=== PATIENT | male | born 1935 | race Caucasian/White ===

== ENCOUNTER 2019-11-20 07:44 | Outpatient (RCR) | payer OTHER ==
[~2019-11-20] VITALS: Ht 172.7 cm; Wt 58.0 kg
[~2019-11-20 07:44] MED LIST changes: -CYANOCOBAL1000 MCG/M IM; -FLOMAX 0.40.4 MG/CAP PO; -IMODIUM 2MG CAPS2 MG PO
[2019-11-20 08:15] VITALS: BP 115/72; PULSE 82; TEMP 97.7
--- NOTE | 2019-11-20 09:45 | NUR ---
PICC HAS BEULAH WRAP ON IT ON RIGHT UPPER ARM, PT ASSISTED TO W/C, RIDE CALLED FROM [facility], PT DISCHARGED WITH [facility], PAPERS FORM PICC CARE SENT WITH PT FOLDER
[2019-11-20] MEDS ORDERED: FLOMAX 0.40.4 MG/CAP PO (10:17)
[2019-11-20] MEDS ORDERED: CYANOCOBAL1000 MCG/M IM (10:18)
[2019-11-20] MEDS ORDERED: IMODIUM 2MG CAPS2 MG PO (10:19)
== END 2019-11-24 15:28 ==
LOC: EUO 07:44
DX: N39.0 Urinary tract infection, site not specified (principal)
CPT/HCPCS: C1751

== ENCOUNTER → 2019-11-20 | Outpatient (CLI) | payer MEDICARE ==
[~2019-11-20] MED LIST: CYANOCOBAL1000 MCG/M IM; FLOMAX 0.40.4 MG/CAP PO; IMODIUM 2MG CAPS2 MG PO; INVANZ INJ1 G/VIAL IV; ZITHROMAX Z PA250 MG PO
[2019-11-20 17:50] LABS: BASO # 0.1 (0.0-0.2); BASO % 0.5 % (0.0-2.0); EOS # 0.4 (0.0-0.7); EOS % 3.6 % (0-4.0); GRAN # 6.9 (1.4-6.5); GRAN % 65.3 % (42.2-75.2); HEMATOCRIT 40.7 % (42.0-52.0); HEMOGLOBIN 12.6 g/dl (13.5-18.0); LYMPH # 2.3 (1.2-3.4); LYMPH % 21.7 % (20.0-51.0); MEAN CELL VOLUME 92 fl (80.0-100.0); MEAN CORPUSCULAR HEMOGLOBIN 29 pg (27.0-31.0); MEAN CORPUSCULAR HGB CONC 31 g/dl (33.0-37.0); MEAN PLATELET VOLUME 12.5 fl (7.4-10.4); MONO # 0.9 (0.1-0.6); MONO % 8.6 % (1.7-9.3); PLATELET COUNT 255 K/mm3 (130-400); RED BLOOD COUNT 4.42 M/mm3 (4.20-5.60); REDCELL DISTRIBUTION WIDTH-CV 14.5 % (11.5-14.5)
[2019-11-20 18:00] LABS: BILIRUBIN,TOTAL 0.7 mg/dL (0.0-1.0); CALCIUM 8.7 mg/dL (8.4-10.2); CREATININE, serum 0.73 (0.66-1.25); POTASSIUM 4.8 mmol/L (3.4-5.0)
[2019-11-20 18:27] LABS: ERYTHROCYTE SEDIMENTATION RATE 69 mm/hr (0-30)
== END ==
LOC: ZCOL.LAB 15:19
PROVIDERS: Internal Medicine
DX: B96.20 Unspecified Escherichia coli [E. coli] as the cause of diseases classified elsewhere (principal)

== ENCOUNTER → 2019-11-25 | Outpatient (CLI) | payer MEDICARE ==
[~2019-11-25] MED LIST changes: +CYANOCOBAL1000 MCG/M IM; +FLOMAX 0.40.4 MG/CAP PO; +IMODIUM 2MG CAPS2 MG PO
== END ==
LOC: ZCOL.LAB 15:14
DX: Z20.828 Contact with and (suspected) exposure to other viral communicable diseases (principal)

== ENCOUNTER 2019-11-28 12:54 | Day surgery (SDC) | payer MEDICARE, OTHER ==
[2019-11-28] VITALS (10 sets, daily range): BP systolic 100–115; BP diastolic 51–82; PULSE 78–94; TEMP 97.2–97.8
[~2019-11-28] VITALS: Ht 172.7 cm; Wt 57.5 kg
[2019-11-28] MEDS ORDERED: BOOST HIGH PRO240 ML PO (13:32)
[2019-11-28] MEDS ORDERED: VITAMIN B11000 MCG/M IM (13:34)
[2019-11-28] MEDS ORDERED: INVANZ INJ1 G/VIAL IV (13:36)
[2019-11-28] MEDS ORDERED: GOOD NEIGH1200 MG/15 PO (13:40)
[2019-11-28] MEDS ORDERED: ALMACONE 360 M360 ML PO (13:41)
[2019-11-28] MEDS ORDERED: ZINC OXIDE56.7 GM TP (13:44)
[2019-11-28] MEDS ORDERED: TYLENOL 325MG325 MG PO (13:45)
[2019-11-28] MEDS ORDERED: DULCOLAX S10 MG/SUPP RC (13:48)
[2019-11-28] MEDS ORDERED: HEPARIN LOCK FLU5 M1 (13:55)
--- NOTE | 2019-11-28 16:45 | NUR ---
PATIENT ADMITED INTO ROOM 326 POST OP TURP WITH LEFT STONE LASER WITH STENT. PATIENT IS VERY DROWSY POST OP. VSS. DEMPSEY TO DD WITH MOD AMOUNTS OF CLEAR YELLOW URINE NOTED. CBI INFUSING AT MOD RATE. IV FLUIDS INFUSING INTO RIGHT UPPER ARM PICC. HEAD TO TOE ASSESSMENT COMPLETE. PATIENT SLEEPING SOUNDLY.
--- NOTE | 2019-11-28 20:00 | NUR ---
PT IN BED. IS ALERT AND ORIENTED X4. HAS IVF INFUSING TO RIGHT UPPER ARM PICC WITHOUT PROBLEM. HAS DEMPSEY TO BSD WITH CBI INFUSING, URINE IS MORAES RED. ENJOYS ICE CREAM AND COOKIE.
[2019-11-29] VITALS: BP 101/60; PULSE 84; TEMP 97.5
--- NOTE | 2019-11-29 02:15 | NUR ---
PT COMPLAINS OF INCREASED PAIN IN BLADDER, HAS TRELL RAG ON WITH RED DRAINAGE. HAND IRRIGATED CATHETER WITH RETURN OF SEVERAL STRINGY CLOTS. URINE STARTED FLOWING AFTER THIS. PT REPORTS NO FURTHER DISCOMFORT.
[2019-11-29 04:00] VITALS: BP 107/55; PULSE 80; TEMP 97.5
[2019-11-29 08:10] VITALS: BP 102/52; PULSE 92; TEMP 97.6
--- NOTE | 2019-11-29 09:00 | NUR ---
Patient resting in bed, easily awakened with verbal command. A&Ox3. Denies pain and discomfort. VSS. IV CDI, fluids infusing. Monterroso with CBI, dark red. Infusion increased, will continue to monitor. No further needs expressed from the patient. Call light within reach. Bed alarm on
[2019-11-29 11:35] VITALS: BP 97/52; PULSE 83; TEMP 97.6
--- NOTE | 2019-11-29 13:37 | NUR ---
Nurses Educator visited with patient but nothing else needed at this time.
--- NOTE | 2019-11-29 15:49 | NUR ---
Plan is to return home with Di Giraldo . Patient reports that Di is his DPOA. Patient reports that he resides with her but they are trying to get hime into [facility] due to ID benifits or [facility] assisted living. Patient report he prefers [facility]. Patient reports that his PCP is Dr. Paula at the [facility] and he obtains [facility]. Patient reports that he uses a cane for mobility prn and denies having any other DME use. Patient reports that Di will provide transportation. Additional care support is Ahmet Giraldo. Patient reports that during his last stay he went to [facility] and is not opposed to another rehab stay if he needs it. ROMEO education patient on services. ROMEO attempted calling DPOA and call went to . Will continue to follow for care support.
[2019-11-29 16:26] VITALS: BP 100/54; PULSE 72; TEMP 97.2
--- NOTE | 2019-11-29 17:34 | NUR ---
Patient had an uneventful day. Continued CBI and patient tolerating well. Dependent drainage peach color with small clots. PICC ELISA CDI. Denies pain and discomfort. Nursing staff encouraging patient to increase PO intake. Patient verbalized an understanding. No further needs expressed from the patient. Call light within reach
[2019-11-29 19:44] VITALS: BP 93/52; PULSE 89; TEMP 97.9
--- NOTE | 2019-11-29 21:30 | NUR ---
PT IN BED. IS ALERT AND ORIENTED X4. HAS DEMPSEY WITH CBI AT SLOW RATE, URINE IS PINK WITH OCCASIONAL REDNESS THAT RESOLVES WITHOUT HAND IRRIGATION. DEMPSEY CARES GIVEN. TAKES ICE CREAM AND COOKIE. PICC TO RIGHT UPPER ARM FLUSHES WELL.
[2019-11-30 00:29] VITALS: BP 116/56; PULSE 83; TEMP 98.5
[2019-11-30 04:00] VITALS: BP 102/43; PULSE 77; TEMP 99.3
--- NOTE | 2019-11-30 05:00 | NUR ---
NO NEED FOR HAND IRRIGATION THIS SHIFT. URINE PINK/YELLOW WITH CBI AT SLOW RATE.
[2019-11-30 07:43] VITALS: BP 130/65; PULSE 81; TEMP 97.4
--- NOTE | 2019-11-30 08:14 | NUR ---
Patient laying in bed, easily awakened with verbal command, plesant. A&Ox3. VSS Denies pain and discomfort. PICC ELISA CDI. Monterroso pink, clear, CBI dependent drainage. No further needs expressed from the patient. Call light within reach
[2019-11-30 11:08] VITALS: BP 99/44; PULSE 93; TEMP 97.9
[2019-11-30 12:49] VITALS: BP 99/44; PULSE 93; TEMP 97.9
--- NOTE | 2019-11-30 14:47 | NUR ---
SW informed that patient would be transfering back to [facility]. DC orders faxed to agency, [facility] staff member contacted and provided patient would be able to be picked up at 2:30pm 11/30/2019. Nurse of patient informed. Nothing further.
--- NOTE | 2019-11-30 15:00 | NUR ---
Patient assisted with getting dressed by nurse. Discharge packet with patient and personal belongings with patient. PICC ELISA left in place to continue treatment at [facility]. CDI. No further needs expressed from the patient. Patient transferred by wheelchair to ED entrance by the nurse to the [facility] transporter.
== END 2019-11-30 15:00 ==
LOC: SDCO 12:54 → SURG 16:45 → SDCO 11-30 15:00
DX: N40.1 Benign prostatic hyperplasia with lower urinary tract symptoms (principal); N13.8 Other obstructive and reflux uropathy; R33.8 Other retention of urine; N20.1 Calculus of ureter; E87.6 Hypokalemia; D64.9 Anemia, unspecified; K25.9 Gastric ulcer, unspecified as acute or chronic, without hemorrhage or perforation; R53.81 Other malaise; Z79.899 Other long term (current) drug therapy; Z87.891 Personal history of nicotine dependence; Z20.828 Contact with and (suspected) exposure to other viral communicable diseases; Z86.19 Personal history of other infectious and parasitic diseases; J44.9 Chronic obstructive pulmonary disease, unspecified; Z87.440 Personal history of urinary (tract) infections
CPT/HCPCS: OP; C1769; J0690; J1100; J2405; J2704; J3010; J3480; J7120

== ENCOUNTER 2021-03-16 13:50 | Emergency (ER) | payer MEDICARE, OTHER ==
[~2021-03-16] VITALS: Ht 172.7 cm; Wt 63.6 kg
[~2021-03-16 13:50] MED LIST changes: +ALMACONE 360 M360 ML PO; +BOOST HIGH PRO240 ML PO; +DULCOLAX S10 MG/SUPP RC; +GOOD NEIGH1200 MG/15 PO; +HEPARIN LOCK FLU5 M1; +TYLENOL 325MG325 MG PO; +VITAMIN B11000 MCG/M IM; +ZINC OXIDE56.7 GM TP
[2021-03-16 14:36] LABS: BASO # 0.1 K/mm3 (0.0-0.2); BASO % 0.5 % (0.0-2.0); EOS # 0.2 K/mm3 (0.0-0.7); EOS % 1.6 % (0.0-4.0); GRAN # 9.3 K/mm3 (1.4-6.5); GRAN % 75.4 % (42.2-75.2); HEMOGLOBIN 11.2 g/dl (13.5-18.0); LYMPH # 1.9 K/mm3 (1.2-3.4); LYMPH % 15.1 % (20.0-51.0); MEAN CELL VOLUME 77 fl (80.0-100.0); MEAN CORPUSCULAR HEMOGLOBIN 23 pg (27-31); MEAN CORPUSCULAR HGB CONC 30 g/dl (33.0-37.0); MEAN PLATELET VOLUME 11.2 fl (7.4-10.4); MONO # 0.8 K/mm3 (0.1-0.6); MONO % 6.5 % (1.7-9.3); PLATELET COUNT 337 K/mm3 (130-400); RED BLOOD COUNT 4.79 M/mm3 (4.20-5.60); REDCELL DISTRIBUTION WIDTH-CV 17.2 % (11.5-14.5)
[2021-03-16 15:10] LABS: ALANINE AMINOTRANSFERASE 13 U/L (0-55); ALBUMIN 2.4 gm/dL (3.4-4.8); ALKALINE PHOSPHATASE 93 U/L (40-150); ANION GAP 13 mmol/L (7-16); AST,SGOT 17 U/L (5-34); BILIRUBIN,TOTAL 0.5 mg/dL (0.2-1.2); BLOOD UREA NITROGEN 14 mg/dL (8-26); C-REACTIVE PROTEIN 20.43 mg/dL (0.00-0.50); CALCIUM 9.2 mg/dL (8.4-10.2); CARBON DIOXIDE 25 mmol/L (23-31); CHLORIDE 104 mmol/L (98-107); CREATININE, serum 0.82 mg/dL (0.72-1.25); GLUCOSE 107 mg/dL (70-99); SODIUM 142 mmol/L (136-145); TOTAL PROTEIN 7.1 gm/dL (6.2-8.1)
[2021-03-16 15:18] LABS: TROPONIN-I < 0.010 ng/mL (0.00-0.033)
[2021-03-16 16:30] LABS: COLLECTION METHOD CLEAN CATCH
[2021-03-16 16:35] LABS: MUCOUS Present (NOT PRESENT); PH 6 (5-8); SQUAMOUS EPITHELIAL None Seen /hpf (0-10); URINE APPEARANCE Hazy (CLEAR/HAZY); URINE BACTERIA Rare /hpf (NONE SEEN); URINE BILIRUBIN Negative (NEGATIVE); URINE BLOOD 2+ (NEGATIVE); URINE COLOR Yellow (YELLOW); URINE GLUCOSE Negative (NEGATIVE); URINE KETONE 1+ (NEGATIVE); URINE LEUKOCYTE ESTERASE 1+ (NEGATIVE); URINE NITRATE Negative (NEGATIVE); URINE PROTEIN(semi-quant) 1+ (NEGATIVE); URINE RBC >50 /hpf (0-2); URINE UROBILINOGEN >=4.0 (NEGATIVE)
[2021-03-16] MEDS ORDERED: OMNICEF 300MG300 MG PO (17:38)
[2021-03-16 18:00] VITALS: BP 151/77; PULSE 89; TEMP 98.1
== END 2021-03-16 18:10 | disposition home or self-care (01) ==
LOC: COL.ER 13:50
PROVIDERS: Nurse Practitioner Primary Care
DX: N39.0 Urinary tract infection, site not specified (principal); Z87.442 Personal history of urinary calculi; Z98.890 Other specified postprocedural states; Z72.0 Tobacco use; Z20.822 Contact with and (suspected) exposure to COVID-19
CPT/HCPCS: J0696; J7030

== ENCOUNTER 2022-12-13 10:00 | Emergency (ER) | payer OTHER ==
[~2022-12-13] VITALS: Ht 172.7 cm; Wt 61.4 kg
[~2022-12-13 10:00] MED LIST changes: +ANTIVERT 12.512.5 MG PO; +ASPIRIN 81M81 MG/TA2 PO; +CEPHALEXIN500 M1 PO; +CEROVITE SENIOR1 TA1 PO; +DIFLUCAN 100MG100 MG PO; +DULERA1 AR1 IH; +EPA FISH OIL1000 MG PO; +FERROUS SU325 MG/TAB PO; +FLONASEALLERGY NS; +ICAPS AREDS2 S1 EACH PO; +LIPITOR 80MG80 MG PO; +NATURAL IRON65 MG PO; +OMNICEF 300MG300 MG PO; +PREDNISONE20 MG PO; +PROTONIX20 MG PO; +SPIRIVA RE2.5 MCG/Ac IH; +STOOL SOFTENER100 M2 PO; +THERA-D 20002000 IU PO; +TYLENOL 500MG500 MG PO; +VTAMINC250TA PO; +ZOFRAN ODT4 MG PO
[2022-12-13 10:10] VITALS: TEMP 97.6
[2022-12-13 10:56] LABS: BASO % 0.5 % (0.0-2.0); EOS # 0.3 K/mm3 (0.0-0.7); GRAN # 5.8 K/mm3 (1.4-6.5); GRAN % 66.6 % (42.2-75.2); LYMPH # 1.9 K/mm3 (1.2-3.4); LYMPH % 22.5 % (20.0-51.0); MEAN CELL VOLUME 89 fl (80.0-100.0); MEAN CORPUSCULAR HGB CONC 29 g/dl (33.0-37.0); MEAN PLATELET VOLUME 10.7 fl (7.4-10.4); MONO # 0.6 K/mm3 (0.1-0.6); MONO % 7.1 % (1.7-9.3); PLATELET COUNT 361 K/mm3 (130-400); RED BLOOD COUNT 3.68 M/mm3 (4.20-5.60); REDCELL DISTRIBUTION WIDTH-CV 18.2 % (11.5-14.5)
[2022-12-13 10:57] LABS: INR 1.1 (0.8-3.0); PROTHROMBIN TIME 11.9 SECONDS (9.7-12.8)
[2022-12-13 10:58] LABS: HEMATOCRIT 32.6 % (42.0-52.0); HEMOGLOBIN 9.6 g/dl (13.5-18.0); MEAN CORPUSCULAR HEMOGLOBIN 26 pg (27-31)
[2022-12-13 11:09] LABS: ALBUMIN 2.4 gm/dL (3.4-4.8); BILIRUBIN,TOTAL 0.3 mg/dL (0.2-1.2); CALCIUM 8.3 mg/dL (8.4-10.2); CREATININE, serum 0.98 mg/dL (0.72-1.25); POTASSIUM 4.1 mmol/L (3.5-4.5); TOTAL PROTEIN 6.2 gm/dL (6.2-8.1)
[2022-12-13 12:36] VITALS: BP 105/60; PULSE 66
== END 2022-12-13 12:36 | disposition home or self-care (01) ==
LOC: COL.ER 10:00
PROVIDERS: Emergency Medicine
DX: S50.11XA Contusion of right forearm, initial encounter (principal); N20.1 Calculus of ureter; Z96.0 Presence of urogenital implants; Z87.891 Personal history of nicotine dependence; Z79.2 Long term (current) use of antibiotics; X58.XXXA Exposure to other specified factors, initial encounter

== ENCOUNTER 2023-02-22 13:29 | Inpatient (IN) | payer OTHER ==
[~2023-02-22] VITALS: Ht 172.7 cm; Wt 61.2 kg
[2023-02-22] VITALS (342 sets, daily range): BP systolic 53–145; BP diastolic 38–76; PULSE 88–137; TEMP 97.4–98.3; O2SAT 72–100
[2023-02-22 13:59] LABS: BASO # 0.1 K/mm3 (0.0-0.2); BASO % 0.4 % (0.0-2.0); EOS # 0.1 K/mm3 (0.0-0.7); EOS % 1.2 % (0.0-4.0); GRAN # 7.7 K/mm3 (1.4-6.5); GRAN % 66.8 % (42.2-75.2); LYMPH # 2.9 K/mm3 (1.2-3.4); LYMPH % 24.7 % (20.0-51.0); MEAN CELL VOLUME 88 fl (80.0-100.0); MEAN CORPUSCULAR HEMOGLOBIN 27 pg (27-31); MEAN CORPUSCULAR HGB CONC 30 g/dl (33.0-37.0); MEAN PLATELET VOLUME 11.2 fl (7.4-10.4); MONO # 0.8 K/mm3 (0.1-0.6); MONO % 6.6 % (1.7-9.3); PLATELET COUNT 231 K/mm3 (130-400); RED BLOOD COUNT 3.75 M/mm3 (4.20-5.60); REDCELL DISTRIBUTION WIDTH-CV 17.7 % (11.5-14.5)
[2023-02-22 14:00] LABS: HEMATOCRIT 33.1 % (42.0-52.0)
[2023-02-22] MEDS ORDERED: NS 1,000 ML IV ONE ×3 (14:00→16:45)
[2023-02-22 14:11] LABS: ALBUMIN 3.1 gm/dL (3.4-4.8); BILIRUBIN,TOTAL 0.4 mg/dL (0.2-1.2); CALCIUM 8.9 mg/dL (8.4-10.2); CREATININE, serum 0.97 mg/dL (0.72-1.25); POTASSIUM 3.6 mmol/L (3.5-4.5); TOTAL PROTEIN 6.2 gm/dL (6.2-8.1)
[2023-02-22] MEDS ORDERED: NS 100 ML IV SCH (14:49)
[2023-02-22] MEDS ORDERED: Iohexol 300 - 100 ML VIAL IV ONE (14:49)
[2023-02-22] MEDS ORDERED: Meropenem 1 G in Water For Injection,Sterile 20 ML IV ONE (15:45)
[2023-02-22 16:10] LABS: COLLECTION METHOD CLEAN CATCH
[2023-02-22] MEDS ORDERED: Pantoprazole 40 MG in NS 10 ML IV SCH (16:30)
[2023-02-22 16:50] LABS: URINE APPEARANCE Hazy (CLEAR/HAZY); URINE COLOR Yellow (YELLOW)
[2023-02-22 16:51] LABS: PH 5.5 (5.0-8.5); URINE BLOOD Negative (NEGATIVE); URINE GLUCOSE Negative (NEGATIVE); URINE KETONE Negative (NEGATIVE); URINE NITRATE Negative (NEGATIVE); URINE PROTEIN(semi-quant) Negative (NEGATIVE); URINE UROBILINOGEN 0.2 E.U/dL (0.2-1.0)
[2023-02-22 16:54] LABS: BUDDING YEAST Present (NOT PRESENT); SQUAMOUS EPITHELIAL 0-2 /hpf (0-10); URINE BACTERIA None Seen /hpf (NONE SEEN); URINE RBC 0-2 /hpf (0-2)
[2023-02-22] MEDS ORDERED: Fluconazole 100 MG TAB PO SCH (17:09)
[2023-02-22] MEDS ORDERED: Tiotropium 2.5 MCG Respimat MDI IH SCH (17:11)
[2023-02-22] MEDS ORDERED: Mometasone/Formoterol 200/5 MCG MDI IH SCH (17:13)
[2023-02-22] MEDS ORDERED: Ondansetron 4 MG/2 ML VIAL IV PRN ×2 (17:15→19:00)
[2023-02-22] MEDS ORDERED: Potassium Bicarbonate/Citrate 20 MEQ Effervescent TAB PO ONE (17:15)
[2023-02-22] MEDS ORDERED: Fluticasone Nasal 50 MCG/Spray 16 GM BOTTLE NS PRN (17:15)
[2023-02-22] MEDS ORDERED: Acetaminophen 500 MG TAB PO PRN (17:15)
--- NOTE | 2023-02-22 17:15 | NUR ---
Report received from ORALIA Carrera; patient came over from ED at approx 1710 on ED stretcher. Patient was alert and oriented and moved over to the ICU bed unassisted. Patient has hearing aids that are not here and is very hard of hearing; patient also has dentures in place and glasses here in his belongings. Patient is tachycardic and blood pressures are soft but above the parameters of needing to start levophed. Patient is in stable condition. Patient had right upper arm PICC placed over in ED; will give NS bolus per eMAR.
[2023-02-22] MEDS ORDERED: NS 1,000 ML IV SCH (17:45)
[2023-02-22] MEDS ORDERED: Albuterol/Ipratropium 3 MG-0.5 MG/3 ML Neb Soln IH PRN (17:45)
[2023-02-22] MEDS ORDERED: Albuterol/Ipratropium 3 MG-0.5 MG/3 ML Neb Soln IH SCH (19:00)
[2023-02-22] MEDS ORDERED: Formoterol 20 MCG,Budesonide 0.5 MG IH SCH (19:00)
[2023-02-22] MEDS ORDERED: Meropenem 500 MG in Water For Injection,Sterile 10 ML IV SCH (20:00)
--- NOTE | 2023-02-22 20:01 | NUR ---
PT RESTING IN BED AT THIS TIME AND REQUESTED BED CARVALHO. PT ABLE TO LIFT BOTTOM AND ASSIST OF 1 STAFF FOR BED CARVALHO USE. HE IS A&O X4 AT THIS TIME. HE REPORTS A RECENT FALL, DENIES PAIN, AND ALL ASSESSMENTS WERE COMPLETED AT THIS TIME. VS NOTED WITH ELEVATED HR AND LEVO INFUSING PER ORDERS. BED IN LOW POSITION, CALL LIGHT WITHIN REACH AND ALL QUESTIONS ANSWERED. PT AWARE OF SURGERY TONIGHT AND PO MEDS HELD AT THIS TIME.
--- NOTE | 2023-02-22 20:45 | NUR ---
DR AYALA AND ANESTHESIA AT BEDSIDE. PROCEDURE REVIEWED OF LEFT URETAL STENT AND CONSENT SIGNED. PT LEFT THE UNIT IN BED.
[2023-02-22] MEDS ORDERED: Eye Formula MVI w/Minerals TABLET PO SCH (21:00)
[2023-02-22] MEDS ORDERED: Lidocaine 2% (20 MG/ML) 20 ML UROJET MM ONE (21:05)
--- NOTE | 2023-02-22 21:31 | NUR ---
PT RETURNED FROM SURGERY AT 2116. ASSESSMENTS COMPLETED. LOW BP WITH ADJUSTMENT OF LEVOPHED PER APR. BED IS LOW POSITION, PT ORIENTED TO SELF AND DENIES PAIN AT THIS TIME. HE IS ON 2L O2 VIA MASK AND REQUESTS A WARM BLANKET. CALL LIGHT WITHIN REACH AND BED IN LOW POSITION. NO ADDITIONAL NEEDS VOICED OR ANTICIPATED AT THIS TIME.
--- NOTE | 2023-02-22 22:48 | NUR ---
PT DIET IS TOLERATED TO GENERAL. NO COUGHING OR TROUBLE SWALLOWING NOTED AT THIS TIME. PUDDING BROUGHT TO ROOM. PT ON RA WITH NO SOA AND MAINTAINING O2 SATS WNL. BP FLUCTUATION NOTED AND LEVOPHED TITRATED PER ORDERS. BED IN LOW POSITION AND CALL LIGHT WITHIN REACH.
[2023-02-23] VITALS (799 sets, daily range): BP systolic 97–129; BP diastolic 51–101; PULSE 78–97; TEMP 97.1–99.1; O2SAT 84–100
[2023-02-23 01:20] LABS: HEMATOCRIT 23.9 % (42.0-52.0); HEMOGLOBIN 7.3 g/dl (13.5-18.0)
[2023-02-23 05:46] LABS: BASO % 0.2 % (0.0-2.0); EOS # 0.1 K/mm3 (0.0-0.7); EOS % 1.7 % (0.0-4.0); GRAN # 5.6 K/mm3 (1.4-6.5); GRAN % 67.5 % (42.2-75.2); LYMPH # 1.9 K/mm3 (1.2-3.4); LYMPH % 22.1 % (20.0-51.0); MEAN CELL VOLUME 87 fl (80.0-100.0); MEAN CORPUSCULAR HGB CONC 31 g/dl (33.0-37.0); MEAN PLATELET VOLUME 11.1 fl (7.4-10.4); MONO # 0.7 K/mm3 (0.1-0.6); MONO % 8.1 % (1.7-9.3); PLATELET COUNT 191 K/mm3 (130-400); RED BLOOD COUNT 2.83 M/mm3 (4.20-5.60); REDCELL DISTRIBUTION WIDTH-CV 17.9 % (11.5-14.5)
[2023-02-23 05:57] LABS: HEMATOCRIT 24.6 % (42.0-52.0); HEMOGLOBIN 7.6 g/dl (13.5-18.0); MEAN CORPUSCULAR HEMOGLOBIN 27 pg (27-31)
[2023-02-23 06:09] LABS: CALCIUM 7.7 mg/dL (8.4-10.2); CREATININE, serum 0.75 mg/dL (0.72-1.25); MAGNESIUM 1.7 mg/dL (1.6-2.6); POTASSIUM 3.9 mmol/L (3.5-4.5)
--- NOTE | 2023-02-23 07:31 | NUR ---
Report received from ORALIA Keith; patient currently resting in bed with NS running through his right upper arm PICC. Patient has a Monterroso catheter in place; no other lines or tubes are in place at this time. Patient is on room air and vital signs are within normal limits this morning. Levophed was stopped at approx midnight last night and pressures have maintained. Patient scheduled for EGD this morning and remains NPO.
[2023-02-23] MEDS ORDERED: NS 1,000 ML IV SCH ×2 (09:15→17:15)
[2023-02-23] MEDS ORDERED: Lidocaine PF 2% (20 MG/ML) 5 ML VIAL ONE (12:39)
--- NOTE | 2023-02-23 13:33 | NUR ---
Patient went for EGD at approx 1220 and returned at approx 1310. Patient tolerated procedure well and was stable upon return from PACU. Patient's vital signs remain within normal limits.
--- NOTE | 2023-02-23 15:03 | NUR ---
Oil Dispenser met with patient to discuss discharge planning. Patient lives alone in [place], [place] and [facility] Patient advised he used to be on the Red Team in [place], however had his care transferred to the [facility]. Patient advised his medications are mailed to him. Patient has both a cane and walker available at home. SW asked patient if he still drives and patient stated "when I can". Patient did report some difficulty recently with ADLS and that he hadn't bathed in about 4 days and needed to shave. SW inquired about HH services and patient stated he had them but not sure what agency they are with. Patient has DPOA-HC on file listing his friend, Amie (ph#[phone]). Patient stated he would like to return home at discharge if possible. SW explained that she is here to assist with any service or resource recommendations. SW contacted ROMEO Vargas at the [facility] who advised patient has home based primary care and that his provider is Yumi Rosales NP. Patient's assigned SW is Deja Jones. SW contacted Deja and left a message. SW contacted [facility] as in a previous SW note, it was written that a referral was sent there for patient. Preethi at [facility] advised they did not admit patient as he was getting his antibiotics through express and was "difficult to redirect". Preethi did indicate they did not have coverage in that area at this time so if he needed HH services, he would have to use a different agency. SW contacted Amie to touch base and explain role. Amie verbalized understanding and aware of any recent difficulties with ADLS. PT/OT ordered for patient. Discharge Plan: TBD
--- NOTE | 2023-02-23 17:55 | NUR ---
Reported off to Maxine Lawrence RN; patient taken upstairs in wheelchair by this nurse. Patient went to medical floor, room 309; patient was in stable condition and went up with IV fluids running through his right upper arm PICC and his Monterroso catheter in place. Patient remained on room air and vital signs were within normal limits. All patient's belongings were sent up with patient.
--- NOTE | 2023-02-23 19:08 | NUR ---
Patient transferred from ICU to unit around 1830. Patient alert and oriented x4, denies pain or discomfort. Vital signs around baseline, SBP noted to be low 100s. PICC line patent with NS running at 75ml/hr. Tolerating fluids well, states he ate a little more than half of his dinner in ICU. Patient in bed with call light in reach and SCDs on, all needs met at this time.
--- NOTE | 2023-02-23 20:00 | NUR ---
PT IN BED, IS ALERT AND ORIENTED X4. TAKES HS MED WITHOUT PROBLEM. HAS IVF TO RT UPPER ARM PICC, SITE WITHOUT REDNESS OR SWELLING. HAS DEMPSEY TO BSD WITH YELLOW URINE. DENIES PAIN AT THIS TIME.
[2023-02-24] VITALS (18 sets, daily range): BP systolic 93–121; BP diastolic 47–70; PULSE 56–104; TEMP 97.4–98.5
--- NOTE | 2023-02-24 04:07 | NUR ---
PT HAS SLEPT MINIMAL THIS SHIFT. DENIES PAIN, IVF CONTINUE TO RT PICC.
[2023-02-24] MEDS ORDERED: Ondansetron 4 MG/2 ML VIAL IV PRN (08:00)
[2023-02-24 08:30] LABS: BASO % 0.6 % (0.0-2.0); EOS # 0.3 K/mm3 (0.0-0.7); EOS % 4.7 % (0.0-4.0); GRAN # 3.6 K/mm3 (1.4-6.5); GRAN % 56.4 % (42.2-75.2); LYMPH # 1.7 K/mm3 (1.2-3.4); LYMPH % 26.8 % (20.0-51.0); MEAN CELL VOLUME 90 fl (80.0-100.0); MEAN CORPUSCULAR HGB CONC 30 g/dl (33.0-37.0); MEAN PLATELET VOLUME 12.1 fl (7.4-10.4); MONO # 0.7 K/mm3 (0.1-0.6); MONO % 11.3 % (1.7-9.3); PLATELET COUNT 163 K/mm3 (130-400); RED BLOOD COUNT 2.45 M/mm3 (4.20-5.60); REDCELL DISTRIBUTION WIDTH-CV 18.1 % (11.5-14.5)
[2023-02-24 08:42] LABS: HEMOGLOBIN 6.6 g/dl (13.5-18.0); MEAN CORPUSCULAR HEMOGLOBIN 27 pg (27-31)
[2023-02-24 08:55] LABS: CALCIUM 7.7 mg/dL (8.4-10.2); CREATININE, serum 0.78 mg/dL (0.72-1.25); MAGNESIUM 1.8 mg/dL (1.6-2.6); POTASSIUM 3.4 mmol/L (3.5-4.5)
--- NOTE | 2023-02-24 10:44 | NUR ---
Patient alert and oriented x4, denies pain at this time. Only concern patient voices was dizziness upon standing or sitting up. Hemoglobin noted to decrease from 7.6 to 6.6 today, Dr. Jenkins notified at 0730 and orders obtained to give 1 unit of blood today. Patient continues to have bloody stools, both dark/tarry as well as bright red. Education provided on upcoming colonoscopy procedure as well as blood transfusion. Patient verbalized understanding. Shift assessment complete, fine crackles noted to upper bases bilaterally. Patient noted to be wheezing with inhalation. Monterroso intact and draining yellow/clear urine. Patient in bed with call light in reach, all needs met at this time.
--- NOTE | 2023-02-24 13:32 | NUR ---
Blood transfusion started around 1305. Blood verified with ORALIA Stahl. Transfusion initiated at 60ml/hr. Vital signs prior to transfusion 107/65, HR 56, O2 97% room air, RR 16, T 98.1. Patient tolerating transfusion well at this time, no significant reaction during first 15 minutes. Patient states he just feels "exhausted." Transfusion rate increased to 100ml/hr after first 15 minutes. VS within baseline following 15 minuetes. Patient alert and oriented x4, resting in bed with call light in reach.
--- NOTE | 2023-02-24 14:14 | NUR ---
Patient continues to be alert and oriented, denies any new symptoms during blood transfusion. Dynamap reading 100s for heart rate, but after obtaining radial pulse HR noted to be 68. Patient resting in bed with SCDs on and call light within reach.
--- NOTE | 2023-02-24 15:42 | NUR ---
Blood transfusion complete, patient tolerated well. States he still feels tired and cold, but no new symptoms. SBP in low 100s, HR in 90s, temp afebrile, O2 >90% on room air, RR 20. Denies pain or discomfort. Telemetry order obtained from Dr. Jenkins. Patient in bed with call light in reach. All needs met at this time.
[2023-02-24 17:05] LABS: HEMATOCRIT 23.2 % (42.0-52.0); HEMOGLOBIN 7.4 g/dl (13.5-18.0)
--- NOTE | 2023-02-24 17:17 | NUR ---
Patient had another dark/loose stool tinged with bright red blood. Hemoglobin and hematocrit checked following blood transfusion and Dr. Jenkins updated on recent levels. Dr. Jenkins states levels are fine at this time and patient can be re-checked in the morning. Patient in bed with call light in reach and SCDs on, all needs met at this time.
--- NOTE | 2023-02-24 20:00 | NUR ---
Assessment complete. A&Ox4. Denies pain/nausea/shortness of breath. VS stable. TELE reporting irregular HR SD. Currently on RA. NS@75ml/hr to right upper arm PICC infusing without difficulty. Patient states he does feel less dizzy and all around better since he received a unit of blood earlier today. Monterroso cath with clear yellow urine. States has had one bloody stool this shift so far. Plan of care discussed for this shift to include meds/pain control/clear liquid diet with bowel prep tomorrow/calling for questions/concerns. Verbalizes understanding. Call light in reach. Will monitor.
[2023-02-25] VITALS (12 sets, daily range): BP systolic 105–132; BP diastolic 57–82; PULSE 85–97; TEMP 97.5–97.9
--- NOTE | 2023-02-25 04:30 | NUR ---
Patient had an uneventful night. DId have one loose stool this shift with blood/clots. VS remained stable. NS@75mls/hr to Right upper arm PICC. AM labs drawn from PICC without difficulty. Monterroso cath with clear yellow urine. Currently on RA. Denies current questions/concerns. Call light in reach. Will monitor.
[2023-02-25] MEDS ORDERED: NS 1,000 ML IV SCH (05:50)
[2023-02-25 07:21] LABS: BASO % 0.4 % (0.0-2.0); EOS # 0.5 K/mm3 (0.0-0.7); GRAN # 4.1 K/mm3 (1.4-6.5); GRAN % 56.1 % (42.2-75.2); LYMPH # 1.8 K/mm3 (1.2-3.4); LYMPH % 24.1 % (20.0-51.0); MEAN CELL VOLUME 89 fl (80.0-100.0); MEAN CORPUSCULAR HGB CONC 31 g/dl (33.0-37.0); MEAN PLATELET VOLUME 12.3 fl (7.4-10.4); MONO # 0.9 K/mm3 (0.1-0.6); MONO % 12.1 % (1.7-9.3); PLATELET COUNT 174 K/mm3 (130-400); REDCELL DISTRIBUTION WIDTH-CV 17.5 % (11.5-14.5)
[2023-02-25 07:31] LABS: HEMATOCRIT 26.6 % (42.0-52.0); HEMOGLOBIN 8.1 g/dl (13.5-18.0); MEAN CORPUSCULAR HEMOGLOBIN 27 pg (27-31)
[2023-02-25 07:43] LABS: CALCIUM 7.6 mg/dL (8.4-10.2); CREATININE, serum 0.82 mg/dL (0.72-1.25); POTASSIUM 3.4 mmol/L (3.5-4.5)
--- NOTE | 2023-02-25 10:00 | NUR ---
Assessment complete. Pt sat up in chair for breakfast for approximately 2 hours. Assisted back to bed with assistance from therapy. A/O x4 but very TANGIRNAQ. Denies pain or needs at this time.
[2023-02-25] MEDS ORDERED: Bisacodyl 5 MG TAB PO SCH (16:00)
[2023-02-25] MEDS ORDERED: Polyethylene Glycol 3350 119 GM BOTTLE PO SCH (18:00)
--- NOTE | 2023-02-25 18:07 | NUR ---
Pt's appetite poor today. Bowel prep started and patient voiced his concern on being able to drink the entire bowel prep regimen. Reassurance provided and encouraged patient to do the best he could. Pt had one dark medium stool earlier this morning that had clots- per PCT. Pt had another medium loose stool this afternoon that was not dark in color or have clots in it. Plan is for colonosocpy tomorrow afternoon.
--- NOTE | 2023-02-25 20:02 | NUR ---
Assessment complete. A&Ox4. Denies pain/nausea/shortness of breath. VS remain stable. Patient states he is feeling a little better this shift. Currently doing bowel prep. States he hasnt had a bowel movement since this AM. Monterroso cath with clear yellow urine. TELE reporting irregular SD. Right upper arm PICC flushes well with good blood return. Noted to have some edema to the right upper extremity from wrist to elbow. Manny bandage has been removed to rest area. PLan of care discussed for this shift to include meds-bowel prep/NPO/calling for questions/concerns. Verbalizes understanding. Call light in reach. Will monitor.
--- NOTE | 2023-02-25 20:55 | NUR ---
Received call from [employer] that patient had a 6 second run of SVT into the 170s-unsustained. VS checked at this time BP-106/57, P 97, R 18, SpO2-95% on RA. Currently patient is not symptomatic. States he did get a little light headed/dizzy a few seconds ago but it did pass. States I had a "swimmy feeling" but feel fine now. Patient is currently doing a bowel prep for a colonoscopy in AM. Will speak with JUAN C Kessler.
--- NOTE | 2023-02-25 21:18 | NUR ---
Patient up to commode at this time.
[2023-02-25 21:41] LABS: HEMATOCRIT 28.9 % (42.0-52.0)
[2023-02-25 21:55] LABS: CALCIUM 8.4 mg/dL (8.4-10.2); CREATININE, serum 0.81 mg/dL (0.72-1.25); MAGNESIUM 1.9 mg/dL (1.6-2.6); POTASSIUM 3.5 mmol/L (3.5-4.5)
[2023-02-25] MEDS ORDERED: Potassium Chloride 100 ML IV SCH (22:00)
[2023-02-25] MEDS ORDERED: *Potassium Replacement Protocol MC SCH (22:00)
--- NOTE | 2023-02-25 22:01 | NUR ---
JUAN C Kessler notified of lab results. K-3.5. New orders received and initiated.
[2023-02-26] VITALS (17 sets, daily range): BP systolic 94–135; BP diastolic 49–79; PULSE 69–92; TEMP 97.4–98.7
--- NOTE | 2023-02-26 00:29 | NUR ---
Patient continues to try to take in bowel prep. Has drank one liter thus far. Staff frequently reminiding patient to continue to try to take in prep. Verbalizes understanding. Has had one liquid stool so far. Will continue to monitor.
[2023-02-26] MEDS ORDERED: Polyethylene Glycol 3350 119 GM BOTTLE PO SCH (01:00)
--- NOTE | 2023-02-26 04:13 | NUR ---
Patient continues to try to drink bowel prep. Has been having difficulty taking it in stating it is way to much fluid. Encouraged every hour through the night to try to drink a little each hour. Verbalizes understanding. Will monitor.
--- NOTE | 2023-02-26 05:31 | NUR ---
Patient had an uneventful night. Has been drinking bowel prep over night. Has had several BMs and are starting to get clear. Denies pain/nausea/shortness of breath. VS remained stable. Denies current needs. Call light in reach. Will monitor.
--- NOTE | 2023-02-26 09:04 | NUR ---
Assessment complete. A/O x4. Completed partial bowel prep last night for a colonoscopy today at 1300. Per caustic cresylate shift superintendent nurse, stools are clear. Patient has not had any stools since shift change. NS infusing to PICC line in ELISA at 75ml/hr. NPO.
--- NOTE | 2023-02-26 10:07 | NUR ---
Per physical therapy, patient had a dark bowel movement. Dr. Monahan notified and wishes to proceed with colonoscopy at 1300. ORALIA Gillette notified.
--- NOTE | 2023-02-26 12:47 | NUR ---
NS at TKA via gravity tubing to PICC line. Pt to endoscopy via cart for colonosocpy.
--- NOTE | 2023-02-26 13:06 | NUR ---
lawn care worker was notified by Dr. Jenkins that patient does not feel he could care for himself at this time if he were to return home. Patient would like to go to SNF prior to returning home. ROMEO confirmed PT/OT are recommending home with home health. ROMEO met with patient whom expressed he does not currently feel comfortable with returning home. He would like to utilize SNF services before he returns home, if possible. ROMEO presented Medicare.gov list of options. Patient would like a referral send to [facility] and [facility]. Patient reports he would also be interested in [facility]. ROMEO faxed a SNF referral to [facility], [facility] and [facility]. ROMEO completed and emailed an RFS request for SNF services to the [place] in [place]. ROMEO will continue to follow. Discharge Plan: SNF
--- NOTE | 2023-02-26 13:44 | NUR ---
Pt returns to room s/p colonosocpy. Pt a/o x4. VSS- see flowsheet.
[2023-02-26] MEDS ORDERED: NS 1,000 ML IV SCH ×2 (16:30)
--- NOTE | 2023-02-26 19:33 | NUR ---
NS infuses at 75ml/hr to PICC line. No bowel movements since returning from colonoscopy. Tolerating advanced diet. Pt denies pain or needs.
--- NOTE | 2023-02-26 20:00 | NUR ---
Assessment complete. A&Ox4. Denies pain/nausea/shortness of breath. VS stable. TELE reporting SR. Currently on RA. Monterroso cath with clear yellow urine. Right upper PICC flushes well with good blood return. Patient states he is ready to go home but is worried that he might need some rehab for strength training. Plan of care discussed for this shift to include meds/pain control/calling for questions/concerns. Call light in reac. Will monitor
[2023-02-27] VITALS (8 sets, daily range): BP systolic 91–110; BP diastolic 45–63; PULSE 62–95; TEMP 97.8–98.9
--- NOTE | 2023-02-27 05:34 | NUR ---
Patient had an uneventful night. Had one large loose stool with blood. NS@75ml/hr to right upper arm PICC infusing without difficulty. AM labs drawn without difficulty. VS stable. Monterroso cath with clear yellow urine. SCDs bilat. TELE reporting SR. Denies current needs. Call light in reach. Will monitor.
--- NOTE | 2023-02-27 06:56 | NUR ---
Report given to ORALIA Goodman
[2023-02-27] MEDS ORDERED: PROTONIX20 MG PO (09:06)
--- NOTE | 2023-02-27 09:49 | NUR ---
Patient alert and oriented x4. Denies pain, just states he feels "sluggish". Shift assessment complete, wheezes noted to lung sounds in upper lobes. Tolerating food and fluids well, ate 90% of breakfast. Monterroso catheter intact and draining clear/yellow urine. Patient resting in bed with call light in reach, all needs met at this time.
--- NOTE | 2023-02-27 15:02 | NUR ---
Discharge instructions discussed with patient including PICC removal recovery instructions, follow-up appointments, medication changes, GI discharge instructions, and education packets. Patient verbalized understanding. PICC line removed by [facility]. Telemetry off. Monterroso discontinued with no complications, catheter tip intact. Patient escorted out by staff and friend via wheelchair.
--- NOTE | 2023-02-27 17:38 | NUR ---
shoe worker was notified by [place] that patient was denied for SNF. SW left a voicemail with the [place] social staff worker that assists with penitentiary placement. ROMEO met with patient and notified him that insurance denied him for SNF. Patient expressed he is unable to private pay and was okay with returning home with home health services. SW presented home health options from Medicare.gov. Patient chose [facility]. ROMEO faxed home health referral and discharge orders to [facility]. SW left a voicemail for the home health social staff worker. ROMEO was contacted by [facility] whom expressed they would be willing to take patient possibly tomorrow. ROMEO notified them that [facility] denied SNF but patient has [employer]. ROMOE spoke with [facility] billing department whom expressed they have not been able to accept [employer] but patient could come with private pay. SW expressed patient is unable to afford private pay at this time. SW expressed she would let patient know that if he were to return home and his PCP recommended he go to LTC or SNF she would let them know their facility was interested in assisting him. ROMEO notified patient [facility] is able to accept him and will be meeting him at his home to assist him. ROMEO explained [facility] is interested in assisting him but [facility] denied him for SNF. SW asked about LTC, patient does not want LTC services. SW explained if he were to return home and need additional services to reach out to his PCP. Patient expressed he understood and would follow up with his PCP. SW notified [facility] home health patient is discharging today. Discharge plan: Home with home health
== END 2023-02-27 14:50 | disposition home health service (06) | DRG 853 ==
LOC: COL.ER 13:29 → ICU 16:11 → MEDICAL 16:11
PROVIDERS: Internal Medicine; Nurse Practitioner Family; Physician Assistant; Urology; ADMIT Internal Medicine
PROC: 0DJ08ZZ Inspection of Upper Intestinal Tract, Via Natural or Artificial Opening Endoscopic (ICD-10-PCS; 2023-02-22)
PROC: 0W3P8ZZ Control Bleeding in Gastrointestinal Tract, Via Natural or Artificial Opening Endoscopic (ICD-10-PCS; 2023-02-22)
PROC: 0T778DZ Dilation of Left Ureter with Intraluminal Device, Via Natural or Artificial Opening Endoscopic (ICD-10-PCS; principal; 2023-02-22 20:00)
PROC: 02HV33Z Insertion of Infusion Device into Superior Vena Cava, Percutaneous Approach (ICD-10-PCS; 2023-02-22 20:00)
DX: A41.9 Sepsis, unspecified organism (principal); K57.91 Diverticulosis of intestine, part unspecified, without perforation or abscess with bleeding; R57.1 Hypovolemic shock; R65.21 Severe sepsis with septic shock; Q62.11 Congenital occlusion of ureteropelvic junction; N13.0 Hydronephrosis with ureteropelvic junction obstruction; J44.9 Chronic obstructive pulmonary disease, unspecified; E78.5 Hyperlipidemia, unspecified; N40.0 Benign prostatic hyperplasia without lower urinary tract symptoms; R53.81 Other malaise; D50.0 Iron deficiency anemia secondary to blood loss (chronic)
CPT/HCPCS: A9270; C1751; C1769; C2617; C9113; J2185; J2405; J2704; J3480; J7030; J7060; P9016; Q9967

== ENCOUNTER 2023-03-15 11:50 | Day surgery (SDC) | payer OTHER ==
[~2023-03-15] VITALS: Ht 172.7 cm; Wt 63.2 kg
[2023-03-15] VITALS (7 sets, daily range): BP systolic 120–157; BP diastolic 54–82; PULSE 76–95; TEMP 97.9–98.2
--- NOTE | 2023-03-15 12:41 | NUR ---
PATIENT ADMITTED TO ROOM 8 AMBULATORY BY SELF. ALERT AND ORIENTED. CONSENTS SIGNED AFTER VOICING UNDERSTANDING. PATIENT IS FORGETFUL AT TIMES AND DOES ADMITS TO NOT ALWAYS REMEMBERING. STATES DID NOT TAKE ANY MEDICATIONS TODAY AND DID NOT BRING LIST. UNSURE OF THE NAMES OF MEDICATIONS OR WHAT THEY ARE FOR. IVF INFUSING AND READY FOR SURGERY. SIDERAILS UP X2 AND CALL LIGHT IN REACH.
[2023-03-15] MEDS ORDERED: DIFLUCAN 100MG100 MG PO (14:43)
[2023-03-15] MEDS ORDERED: BACTRIM DS 8001 TAB PO (14:43)
[2023-03-15] MEDS ORDERED: PERCOCET 325 MG1 TA2 PO (14:43)
--- NOTE | 2023-03-15 16:50 | NUR ---
1515 RETURNS TO ROOM 8 PER CART. PATIENT VERY DROWSY, AROUSES TO VERBAL STIMULI. RESP UNLABORED. HOB ELEVATED 30 DEGREES. VITAL SIGNS OBTAINED. ABD SOFT, NO URETHRAL BLEEDING OBSERVED. CALL LIGHT AT SIDE 1530 REMAINS DROWSY. DOES AROUSE EASIER TO VERBAL STIMULI. RESPONDS APPROPRIATELY. DENIES PAIN OR URINARY URGENCY 1545 AROUSES SPONTANEOUSLY. TOLERATES PO JUICE 1600 AROUSES SPONTANEOUSLY. DENIES PAIN OR URINARY URGENCY 1615 AMBULATES TO BATHROOM WITH STANDBY ASSIST. VOIDS. URINE PINK. DENIES PAIN 1625 DISCHARGE INSTRUCTIONS REVIEWED. WILL REVIEW WITH KULWINDER ALSO WHEN SHE ARRIVES TO RATE REVIEWER PATIENT 1637 SITS ON EDGE OF BED. DRESSES WITH ASSIST OF THIS NURSE.
== END 2023-03-15 16:50 | disposition home or self-care (01) ==
LOC: SDCO 11:50
DX: N20.2 Calculus of kidney with calculus of ureter (principal); I95.9 Hypotension, unspecified; A41.9 Sepsis, unspecified organism; R00.0 Tachycardia, unspecified; R82.81 Pyuria; F17.290 Nicotine dependence, other tobacco product, uncomplicated
CPT/HCPCS: C1769; C2617; J0690; J1100; J2405; J2704; J3010; J7120